=== PATIENT | female | born 1960 | race Caucasian/White ===

== ENCOUNTER → 2018-10-12 | Outpatient (CLI) | payer BC ==
--- NOTE | 2018-10-12 17:28 | US ---
EXAMINATION TYPE: US abdomen complete DATE OF EXAM: 10/12/2018 COMPARISON: NONE CLINICAL HISTORY: R10.13 EPIGASTRIC PAIN. EXAM MEASUREMENTS: Liver Length: 12.4 cm Gallbladder Wall: 0.1 cm CBD: 0.3 cm Spleen: 8.3 cm Right Kidney: 13.0 x 5.1 x 5.6 cm Left Kidney: 13.0 x 4.5 x 5.4 cm Pancreas: Tail obscured by overlying bowel gas Liver: wnl Gallbladder: wnl Evidence for sonographic Avery's sign: no CBD: wnl Spleen: wnl Right Kidney: No hydronephrosis or masses seen Left Kidney: No hydronephrosis or masses seen Upper IVC: wnl Abd Aorta: distal obscured by overlying bowel gas No ascites seen. IMPRESSION: No gallstones or dilated ducts. No evidence of renal mass or obstruction. No free fluid.
== END | disposition home or self-care (01) ==
LOC: RADUSWWP 16:33
PROVIDERS: ATTEND Internal Medicine
DX: R10.13 Epigastric pain (principal)
CPT/HCPCS: 76700

== ENCOUNTER → 2019-02-15 | Outpatient (CLI) | payer BC ==
--- NOTE | 2019-02-16 10:54 | MM ---
Reason for exam: screening (asymptomatic). Last mammogram was performed 4 years and 4 months ago. History: Patient is postmenopausal. Family history of breast cancer in mother at age 60. Physical Findings: A clinical breast exam by your physician is recommended on an annual basis and results should be correlated with mammographic findings. MG 3D Screening Mammo W/Cad Bilateral CC and MLO view(s) were taken. Prior study comparison: October 13, 2014, mammogram. September 27, 2014, mammogram. The breast tissue is heterogeneously dense. This may lower the sensitivity of mammography. Stable benign calcifications. There is chronic nodularity bilaterally. There is no dominant lesion. There is no discrete abnormality. No significant changes when compared with prior studies. ASSESSMENT: Benign, BI-RAD 2 RECOMMENDATION: Routine screening mammogram of both breasts in 1 year.
== END | disposition home or self-care (01) ==
LOC: RADMAMWWP 12:30
PROVIDERS: ATTEND Family Medicine
DX: Z12.31 Encounter for screening mammogram for malignant neoplasm of breast (principal)
CPT/HCPCS: 77063; 77067

== ENCOUNTER → 2024-10-18 | Outpatient (CLI) | payer MEDICARE ==
--- NOTE | 2024-10-18 15:21 | MM ---
Reason for Exam: Additional evaluation requested from abnormal screening. Last screening mammogram was performed less than 1 month ago. Patient History: Menarche at age 13. First Full-Term at age 20. Postmenopausal. Mother had breast cancer, age 60. Risk Values: Nisha 5 year model risk: 2.9%. NCI Lifetime model risk: 10.7%. Prior Study Comparison: 10/13/2014 Screening Mammogram, Unknown. 02/15/2019 Bilateral Screening Mammogram, [facility]. 10/14/2024 Bilateral MG 3D screening mammo w/cad, [facility]. Tissue Density: Left: The breasts are heterogeneously dense, which may obscure small masses. Findings: Analyzed By CAD. Focal asymmetry 20 mm from the nipple in the retroareolar region in the upper outer aspect measuring 18 mm. Asymmetries inferiorly at 7.0 cm and 4.2 cm from the nipple possibly medially on CC view. Focal asymmetry 20 mm from the nipple in the retroareolar region in the upper outer aspect measuring 18 mm. Asymmetries inferiorly at 7.0 cm and 4.2 cm from the nipple possibly medially on CC view. Calcifications are not felt to be suspicious as a punctate and scattered on magnification views. Overall Assessment: Incomplete: need additional imaging evaluation, BI-RAD 0 Management: Diagnostic Breast Ultrasound of the left breast. Results were given to the patient verbally at the time of exam. Patient should continue monthly self-breast exams. A clinical breast exam by your physician is recommended on an annual basis. This exam should not preclude additional follow-up of suspicious palpable abnormalities. Note on Nisha scores and lifetime risk: 1. A Nisha score greater than 3% is considered moderate risk. If this is the case, consider specialist referral to assess eligibility for a risk reducing agent. 2. If overall lifetime risk for the development of breast cancer is 20% or higher, the patient may qualify for future screening with alternating mammogram and breast MRI. [facility], , 10/18/2024 3:17 PM. Electronically signed and approved by: Dionicio Florence DO
--- NOTE | 2024-10-19 07:53 | USB ---
Patient History: Menarche at age 13. First Full-Term at age 20. Postmenopausal. Mother had breast cancer, age 60. Risk Values: Nisha 5 year model risk: 2.9%. NCI Lifetime model risk: 10.7%. Prior Study Comparison: 10/13/2014 Screening Mammogram, Unknown. 02/15/2019 Bilateral Screening Mammogram, [facility]. 10/14/2024 Bilateral MG 3D screening mammo w/cad, [facility]. Findings: The medial section of the breast of the left breast, the axilla of the left breast and the retroareolar of the left breast were scanned. Technique utilized:US breast workup limited LT Image; Ultrasound imaging of: All 4 quadrants, the retroareolar region and axilla. Left breast 6:00 3 cm from the nipple hypoechoic mass with hyperechoic focus in the middle possibly representing constipation measuring 1.4 x 0.8 x 1.1 cm. This has posterior acoustic shadowing and irregular margins. Left breast 11:00 4 cm nipple large hypoechoic irregular shaped mass measuring at least 1.5 x 3.8 x 2.3 cm with irregular margins. Left breast 7:00 6 cm from the nipple hypoechoic irregular shaped lesion with posterior acoustic shadowing and irregular margins and is wider than tall measuring 7 x 7 x 8 mm. Left retroareolar region 11:00 hypoechoic mass with fingerlike projections measuring at least 12 x 13 x 12 mm. In the axilla some lymph nodes have borderline thickened cortex measuring up to 3 mm technically indeterminate. Overall Assessment: Highly suggestive of malignancy, BI-RAD 5 Management: Ultrasound Core Biopsy of the left breast. Multiple suspicious lesions are seen throughout the left breast which are very suspicious in morphology. Recommend doing at least 6:00 3 cm from the nipple and 11:00 4 cm nipple 3.8 cm masses with return for the other 2 sites at another date. A clinical breast exam by your physician is recommended on an annual basis and results should be correlated with mammographic findings. This exam should not preclude additional follow-up of suspicious palpable abnormalities. Results were given to the patient verbally at the time of exam. [facility], , 10/19/2024 7:50 AM. Electronically signed and approved by: Dionicio Florence DO
== END | disposition home or self-care (01) ==
LOC: RADMAMWWP 14:42
PROVIDERS: ATTEND Family Medicine
DX: R92.8 Other abnormal and inconclusive findings on diagnostic imaging of breast (principal); R92.332 Mammographic heterogeneous density, left breast; Z78.0 Asymptomatic menopausal state; Z80.3 Family history of malignant neoplasm of breast
CPT/HCPCS: 77061; 77065

== ENCOUNTER → 2024-10-25 | Day surgery (SDC) | payer MEDICARE | LOC: RADUSWWP 11:52 | PROVIDERS: ATTEND Family Medicine | DX: C50.812 Malignant neoplasm of overlapping sites of left female breast (principal) | CPT/HCPCS: 88305; 88342; 88341; 77065; 19083; 19084; A4648 ==

== ENCOUNTER → 2024-11-24 | Outpatient (CLI) | payer MEDICARE ==
--- NOTE | 2024-11-29 08:36 | BMR ---
EXAM DATE: 11/24/2024 EXAM DESCRIPTION: MRI-Breast Bilat (W/WO Contrast) INDICATION: Multifocal left breast cancer. Pretreatment staging. COMPARISON: PRIOR MRIs: None available. Correlation to mammograms: 04/17/2019, 10/14/2024, 11/21/2024. Correlation to ultrasound: None available. CONTRAST: 7 cc Gadavist IV gadolinium contrast TECHNIQUE: Multiplanar multisequence MR imaging of both breasts was performed with a dedicated breast coil. Images were obtained before and after administration of IV gadolinium, using the standard breast mass protocol. Computer aided detection was utilized for interpretation. FINDINGS: LMP: Postmenopausal General breast composition: The breast is heterogeneously dense Background parenchymal enhancement: Mild RIGHT BREAST: The T2 weighted series shows no areas of abnormal signal intensity. Review of the dynamic series shows no early or abnormal enhancement. LEFT BREAST: At 6 o'clock, 3 cm from the nipple there is irregular heterogeneously enhancing mass estimating 1.5 x 1.4 x 1.2 cm consistent with known malignancy. Approximately 2 cm posterior there is a second enhancing irregular mass estimating 1.1 x 1.1 x 1.0 cm at 6 o'clock approximately 8 cm from the nipple. There is intervening non mass enhancement. 1.5 cm cranial to the posterior mass is a 0.5 cm mass with similar enhancement kinetics few additional foci of enhancement extend posteriorly to the posterior mass by 2 cm. Total area of abnormal enhancement is estimated at 8.3 x 2.8 x 1.5 cm. LYMPH NODES: Left axillary lymph nodes appear normal in size, however asymmetrically prominent as compared to the right. No evidence of right axillary or internal mammary adenopathy. IMPRESSION: RIGHT BREAST: No MR evidence of malignancy. LEFT BREAST: 2 known malignant masses at 6 o'clock with intervening non mass enhancement and additional foci of suspicious appearing enhancement. Total area estimates 8.3 x 2.8 x 1.5 cm. Asymmetrically prominent left axillary lymph nodes, mildly suspicious. If clinically necessitated, targeted ultrasound with possible biopsy could be performed. OVERALL ASSESSMENT -- BI-RADS 6: Known Biopsy proven Malignancy MTDD
== END | disposition home or self-care (01) ==
LOC: RADMRIMAIN 15:29
PROVIDERS: ATTEND Surgery
DX: C50.312 Malignant neoplasm of lower-inner quadrant of left female breast (principal); Z78.0 Asymptomatic menopausal state
CPT/HCPCS: 77049; A9585